=== PATIENT | female | born 1945 | race Caucasian/White ===

== ENCOUNTER → 2017-03-15 | Outpatient (CLI) | payer MEDICARE, BC | LOC: MC.RAD 03-13 08:00 | DX: Z12.31 Encounter for screening mammogram for malignant neoplasm of breast (principal) ==

== ENCOUNTER 2017-08-23 08:45 | Outpatient (RCR) | payer MEDICARE, BC | END 2017-08-30 11:13 | disposition home or self-care (01) | LOC: WSPT 08:45 | DX: M25.552 Pain in left hip (principal); M54.32 Sciatica, left side | CPT/HCPCS: G8978-GP; G8979-GP; G8980-GP ==

== ENCOUNTER → 2018-03-18 | Outpatient (CLI) | payer MEDICARE, BC | LOC: MC.RAD 08:00 | DX: Z12.31 Encounter for screening mammogram for malignant neoplasm of breast (principal) ==

== ENCOUNTER → 2019-03-20 | Outpatient (CLI) | payer MEDICARE, BC | LOC: MC.RAD 08:00 | DX: Z12.31 Encounter for screening mammogram for malignant neoplasm of breast (principal); N64.89 Other specified disorders of breast ==

== ENCOUNTER → 2020-05-03 | Outpatient (CLI) | payer MEDICARE, BC | LOC: MC.RAD 08:30 | DX: Z12.31 Encounter for screening mammogram for malignant neoplasm of breast (principal) ==

== ENCOUNTER → 2021-05-20 | Outpatient (CLI) | payer MEDICARE, BC | LOC: MC.RAD 05-19 16:45 | DX: Z12.31 Encounter for screening mammogram for malignant neoplasm of breast (principal) ==

== ENCOUNTER → 2023-07-10 | Outpatient (CLI) | payer MEDICARE, BC | LOC: MC.RAD 10:29 | DX: Z12.31 Encounter for screening mammogram for malignant neoplasm of breast (principal) ==